=== PATIENT | female | born 1965 | race Caucasian/White ===

== ENCOUNTER 2019-05-30 09:11 | Outpatient (CLI) | payer BC, SELFPAY ==
--- NOTE | ~2019-05-30 | MM_ITS ---
EXAMINATION: MM screening [facility] BI w khari HISTORY: Screening mammogram TECHNIQUE: Craniocaudal and mediolateral oblique 3-D tomosynthesis images were obtained and synthetic 2-D images were generated. CAD analysis was submitted and interpreted. COMPARISON: 05/05/2018, 03/04/2017, 02/20/2016 BREAST PARENCHYMAL COMPOSITION: There are scattered areas of fibroglandular density. FINDINGS: There is no evidence of suspicious mass, calcification, or architectural distortion to sugg est malignancy in either breast. There has been no suspicious interval change. IMPRESSION: 1. No mammographic evidence of malignancy. 2. Recommend routine screening mammography in one year. BI-RADS Category 1: Negative Reviewed, dictated and finalized at location A. IFIED RESPIRATORY THERAPIST
== END 2019-05-30 09:12 | disposition home or self-care (01) ==
PROVIDERS: PCP Family Medicine; Visit Provider Nurse Practitioner
DX: Z12.31 Encounter for screening mammogram for malignant neoplasm of breast (principal)
CPT/HCPCS: 77063; 77067

== ENCOUNTER 2020-06-06 14:04 | Outpatient (CLI) | payer BC, SELFPAY ==
--- NOTE | ~2020-06-06 | MM_ITS ---
EXAMINATION: MM screening [facility] BI w khari HISTORY: Screening mammogram TECHNIQUE: Craniocaudal and mediolateral oblique 3-D tomosynthesis images were obtained and synthetic 2-D images were generated. CAD analysis was submitted and interpreted. COMPARISON: 05/30/2019, 05/05/2018, 03/04/2017 BREAST PARENCHYMAL COMPOSITION: There are scattered areas of fibroglandular density. FINDINGS: There is no evidence of suspicious mass, calcification, or architectural distortion to sugg est malignancy in either breast. There has been no suspicious interval change. IMPRESSION: 1. No mammographic evidence of malignancy. 2. Recommend routine screening mammography in one year. BI-RADS Category 1: Negative Reviewed, dictated and finalized at location A. THESIOLOGISTS' ASSISTANT
== END 2020-06-06 14:05 | disposition home or self-care (01) ==
LOC: ANHIMG 14:06
PROVIDERS: PCP Family Medicine; Visit Provider Nurse Practitioner
DX: Z12.31 Encounter for screening mammogram for malignant neoplasm of breast (principal)
CPT/HCPCS: 77063; 77067

== ENCOUNTER 2020-08-01 14:15 | Outpatient (CLI) | payer BC, SELFPAY ==
--- NOTE | ~2020-08-01 | DEXA_ITS ---
Bone Density Report Name: Shanika Hearn Age: 55 Sex: Female Ethnicity: White Date of : 1965 Indication: postmenopausal; height loss; Referring Provider: José Miguel, Malissa Study: Bone densitometry was performed. Exam Date: August 01, 2020 Accession number: [id number] Bone Density: Region BMD T-score Z-score Classification AP Spine (L1, L2, L3) 1.204 1.7 2.7 Normal Femoral Neck (Left) 0.951 0.9 2.0 Normal Total Hip (Left) 1.176 1.9 2.6 Normal Total Hip Bilateral Avg 1.117 1.4 2.1 Normal Femoral Neck (Right) 0.942 0.8 1.9 Normal Total Hip (Right) 1.056 0.9 1.6 Normal World Health Organization criteria for BMD impression classify patients as: Normal (T-score at or above -1.0), Osteopenia (T-score between -1.0 and -2.5), or Osteoporosis (T-score at or below -2.5). 10-year Fracture Risk: FRAX not reported because: All T-scores for Spine Total, Hip Total, Femoral Neck at or above -1.0 Clinical Information Provided by Patient: Has used the following medications: Vitamin D Patient maximum height was 65.0 Menopause Age: 53 No regular weight bearing exercise Does not regularly consume dairy products Drinks caffeinated beverages Onset of menses at age 10 Number of children 2 Impression: The patient has normal bone mass. Discussion: BONE DENSITY IS ABOVE THE MINIMUM DESIRABLE LEVEL AT ALL SKELETAL SITES TESTED. This patient?s bone mineral density is above the minimum desirable level (T-score -1.0 or better) at all sites measured. The patient should follow a healthful lifestyle (good nutrition with adequate calcium and vitamin D, and appropriate weight-bearing exercise). Follow-Up: Consider repeating this study in 5 years or sooner if there is some new clinical indication. Reported by: [facility] on 08/01/2020 3:11:00 PM. Reviewed, dictated and finalized at location [facility]
== END 2020-08-01 14:16 | disposition home or self-care (01) ==
PROVIDERS: PCP Family Medicine; Visit Provider Nurse Practitioner
DX: Z13.820 Encounter for screening for osteoporosis (principal)
CPT/HCPCS: 77080

== ENCOUNTER 2021-09-16 09:08 | Outpatient (CLI) | payer BC, SELFPAY ==
--- NOTE | ~2021-09-16 | MM_ITS ---
EXAMINATION: MM screening [facility] BI w khari HISTORY: Screening mammogram TECHNIQUE: Craniocaudal and mediolateral oblique 3-D tomosynthesis images were obtained and synthetic 2-D images were generated. CAD analysis was submitted and interpreted. COMPARISON: 06/06/2020, 05/30/2019, 05/05/2018 BREAST PARENCHYMAL COMPOSITION: There are scattered areas of fibroglandular density. FINDINGS: There is no suspicious mass, calcification, or architectural distortion to suggest malignan cy in either breast. There has been no suspicious interval change. IMPRESSION: 1. No mammographic evidence of malignancy. 2. Recommend routine screening mammography in one year. BI-RADS Category 1: Negative Reviewed, dictated and finalized at location A.
== END 2021-09-16 09:09 | disposition home or self-care (01) ==
LOC: ANHIMG 09:10
PROVIDERS: PCP Family Medicine; Visit Provider Nurse Practitioner
DX: Z12.31 Encounter for screening mammogram for malignant neoplasm of breast (principal)
CPT/HCPCS: 77063; 77067

== ENCOUNTER 2021-09-26 09:30 | Outpatient (CLI) | payer BC, SELFPAY ==
--- NOTE | ~2021-09-26 | US_ITS ---
EXAMINATION: US pelvic complete w TV DATE: 09/26/2021 10:39 INDICATION: Postmenopausal bleeding Comparison:No prior studies for comparison. TECHNIQUE: Multiple transabdominal and endovaginal sonographic images of the pelvis performed. FINDINGS: The uterus measures 6.7 x 3.8 x 4 cm. The endometrial complex measures 6 mm. The endometriu m measures poorly defined and heterogeneous. The right ovary measures 2 x 1.4 x 1.6 cm and the left ovary is not visualized. There is no free fluid in the pelvis. There are no abnormal masses seen on either side. IMPRESSION: 1. Thickened endomtrial complex. The differential diagnosis includes endometrial hyperplasia, polyp a nd carcinoma. Biopsy is recommended. Reviewed, dictated and finalized at location A. IMPRESSION: 1. Thickened endomtrial complex. The differential diagnosis includes endometria l hyperplasia, polyp and carcinoma. Biopsy is recommended.
== END 2021-09-26 09:31 | disposition home or self-care (01) ==
PROVIDERS: PCP Family Medicine; Visit Provider Nurse Practitioner
DX: N95.0 Postmenopausal bleeding (principal); R93.89 Abnormal findings on diagnostic imaging of other specified body structures
CPT/HCPCS: 76830; 76856

== ENCOUNTER 2022-12-18 14:26 | Outpatient (CLI) | payer BC, SELFPAY ==
--- NOTE | ~2022-12-18 | MM_ITS ---
EXAMINATION: MM screening [facility] BI w khari HISTORY: Screening mammogram TECHNIQUE: Craniocaudal and mediolateral oblique 3-D tomosynthesis images were obtained and synthetic 2-D images were generated. CAD analysis was submitted and interpreted. COMPARISON: 09/16/2021, 06/02/2020, 05/30/2019 bilateral screening mammogram examinations BREAST PARENCHYMAL COMPOSITION: There are scattered areas of fibroglandular density. FINDINGS: Biopsy marker on the right; history of prior benign right breast biopsy. There is no eviden ce of suspicious mass, calcification, or architectural distortion to suggest malignancy in either vito ast. There has been no suspicious interval change. IMPRESSION: 1. No mammographic evidence of malignancy. 2. Recommend routine screening mammography in one year. BI-RADS Category 1: Negative Reviewed, dictated and finalized at location A.
== END 2022-12-18 14:27 | disposition home or self-care (01) ==
PROVIDERS: Visit Provider Obstetrics & Gynecology
DX: Z12.31 Encounter for screening mammogram for malignant neoplasm of breast (principal)
CPT/HCPCS: 77063; 77067

== ENCOUNTER 2023-12-31 14:33 | Outpatient (CLI) | payer OTHER, SELFPAY ==
--- NOTE | ~2023-12-31 | MM_ITS ---
EXAMINATION: MM screening [facility] BI w khari HISTORY: Screening mammogram TECHNIQUE: Craniocaudal and mediolateral oblique 3-D tomosynthesis images were obtained and synthetic 2-D images were generated. CAD analysis was submitted and interpreted. COMPARISON: 12/18/2022, 09/16/2021, 06/06/2020, 05/30/2019 BREAST PARENCHYMAL COMPOSITION:Not Dense. There are scattered areas of fibroglandular density. FINDINGS: No suspicious mass, calcification, or architectural distortion are identified in either vito ast to suggest malignancy. There has been no suspicious interval change. IMPRESSION: No mammographic evidence of malignancy. Recommend routine screening mammography in one year. BI-RADS Category 1: Negative Reviewed, dictated and finalized at location .
== END 2023-12-31 14:34 | disposition home or self-care (01) ==
PROVIDERS: PCP Physician Assistant; Visit Provider Obstetrics & Gynecology
DX: Z12.31 Encounter for screening mammogram for malignant neoplasm of breast (principal)
CPT/HCPCS: 77063; 77067

== ENCOUNTER 2024-03-14 12:20 | Emergency (ER) | payer OTHER, SELFPAY ==
[2024-03-14 12:24] VITALS: BP 126/64; PULSE 79; RESP 18; TEMP 36.4; O2SAT 100
--- NOTE | 2024-03-14 14:23 | PC.NURSE ---
pt's PCP sent OP xray order for pt, so pt left prior to being seen.
== END 2024-03-14 16:22 | disposition left against medical advice (07) ==
PROVIDERS: PCP Physician Assistant
DX: M25.562 Pain in left knee (principal)
CPT/HCPCS: 99199

== ENCOUNTER 2024-03-14 14:30 | Outpatient (CLI) | payer OTHER, SELFPAY ==
--- NOTE | ~2024-03-14 | XR_ITS ---
Left Knee Technique: AP, lateral, and sunrise views were obtained. Clinical History: Pain Findings: No fracture or dislocation is seen. Osseous alignment is anatomic. There is mild degenerati ve spurring of the lateral compartment, intercondylar notch, and patella. Soft tissues are unremarkab le. No joint effusion is seen. Impression: Mild degenerative change, as above. Reviewed, dictated and finalized at location M. ER TREATMENT PLANT OPERATOR Impression: Mild degenerative change, as above.
== END 2024-03-14 14:31 | disposition home or self-care (01) ==
PROVIDERS: PCP Physician Assistant; Visit Provider Physician Assistant
DX: M17.12 Unilateral primary osteoarthritis, left knee (principal)
CPT/HCPCS: 73562

== ENCOUNTER 2025-01-09 14:08 | Outpatient (CLI) | payer OTHER, SELFPAY ==
--- NOTE | ~2025-01-09 | MM_ITS ---
EXAMINATION: MM screening [facility] BI w khari HISTORY: Screening TECHNIQUE: Craniocaudal and mediolateral oblique 3-D tomosynthesis images were obtained and synthetic 2-D images were generated. CAD analysis was submitted and interpreted. COMPARISON: Comparison to multiple prior studies sequentially, with oldest reviewed study dated 05/05/2018. BREAST PARENCHYMAL COMPOSITION: Not dense: There are scattered areas of fibroglandular density. FINDINGS: There is no evidence of suspicious mass, calcification, or architectural distortion to suggest malignancy in either breast. There has been no suspicious interval change. IMPRESSION: 1. No mammographic evidence of malignancy. 2. Recommend routine screening mammography in one year. BI-RADS Category 1: Negative Reviewed, dictated and finalized at location B.
--- OUTSIDE RECORDS SUMMARY | 2025-01-09 14:44 | XMS_ITS | Data Portability ---
Author Organization [place] [facility] [place] [facility], Main Office Address [address] [place] [address] Assessment Encounter Date Assessment Date Assessment LastModified by Organization Details LastModified Time 12/17/2022 12/17/2022 [facility]- 2016- Fedder- repeat 2026 Mammogram- per MANAGER ADOBE, done 09/2021- scheduled for December E- MANAGER ADOBE- Amalia Shmuel Call office if worse, ER if life threatening illness RTC 1 month She voices understanding of plan and agrees [email or web address] Not available 12/17/2022 16:32:09 01/21/2023 01/21/2023 [facility] 2017- Fedder- repeat 2026 Mammogram- per MANAGER ADOBE, done 09/2021- scheduled for December E- MANAGER ADOBE- Amalia Huiyeison Call office if worse, ER if life threatening illness RTC 1 month She voices understanding of plan and agrees [email or web address] Not available 01/21/2023 15:42:52 02/25/2023 02/25/2023 [facility]- 2017- Fedder- repeat 2026 Mammogram- per MANAGER ADOBE WWE- MANAGER ADOBE- Amalia Huiyeison Call office if worse, ER if life threatening illness RTC 1 month She voices understanding of plan and agrees [email or web address] Not available 02/25/2023 17:33:06 03/25/2023 03/25/2023 [facility]- 2017- Fedder- repeat 2026 Mammogram- per MANAGER ADOBE WWE- MANAGER ADOBE- Amalia Huiyeison Call office if worse, ER if life threatening illness RTC 1 month She voices understanding of plan and agrees [email or web address] Not available 03/25/2023 15:00:55 04/29/2023 04/29/2023 [facility] [place]- 2017- Fedder- repeat 10 years- 2026 Mammogram- per MANAGER ADOBE WWE- MANAGER ADOBE- Amalia Mi Call office if worse, ER if life threatening illness She plans transfer to PCP in [facility] She voices understanding of plan and agrees [email or web address] Not available 04/29/2023 15:59:45 Plan of Treatment Reminders Order Date Submit Date Provider Last Modified By Organization Details Last Modified Time Details Appointments None recorded. Lab None recorded. Referral None recorded. Procedures None recorded. Surgeries None recorded. Imaging None recorded. Medication Orders losartan 50 mg-hydrochl orothiazide 12.5 mg tablet 2023 024 [facility] [address] [place], [address], 4 15:56:22 phentermine 37.5 mg tablet 2023 024 [facility] [address] [place], [address], 4 15:56:21 topiramate 25 mg tablet 2023 024 [facility] [address] [place], [address], 4 15:56:20 phentermine 37.5 mg tablet 2022 023 [facility] [address] [place], [address], 3 15:16:32 phentermine 37.5 mg tablet 2022 023 [facility] [address] [place], [address], 3 16:16:37 phentermine 37.5 mg tablet 2022 023 [facility] [address] [place], [address], 3 15:51:23 phentermine 37.5 mg tablet 2022 023 [facility] [address] [place], [address], 3 15:55:58 Patient TargetsNo targets recorded. Patient InstructionsNo instructions recorded. Reason for Referral None Reported. Problems Name Problem SNOMED Code Status Onset Date Resolution Date Notes Provider Name and Address Organization Details Recorded Time Impacted cerumen in right ear 3997384793464 103 Active 2021 Not Available [facility] 3 00:58:25 Constipati on 51025782 Active 2022 Not Available [facility] 3 00:58:25 Essential hypertensi on 33940787 Active 2022 RAMOS Rhoades-C [address], [place], [address] , [employer] 3 19:55:12 Eruption 750376452 Active 2022 RAMOS Rhoades-C [address], [place], [address] , [employer] 3 19:55:16 Obesity 616311966 Active 2022 RAMOS Rhoades-C [address], [place], [address] , [facility] 3 19:55:20 Hyperlipid emia 99184858 Active 2022 RAMOS Rhoades-C [address], [place], [address] , [facility] 3 19:55:26 Prediabete s 003175567 Active 2022 RAMOS Rhoades-C [address], [place], [address] , [employer] 3 19:55:30 Vitamin D deficiency 40698383 Active 2022 RAMOS Rhoades-Bassem [address] [facility], [facility] [address], [place], [address] , [facility] 3 10:39:21 Acute urinary tract infection 445729504 Active 2022 CYRUS Garcia, [facility] 3 17:23:55 Hypokalemi a 70919807 Active 2022 CYRUS Garcia, [facility] 3 17:25:12 Problem Notes None recorded. Medical Equipment None Reported. Allergies No known drug allergies Medications Name Sig Start Date Stop Date Status Note LastModified by Organization Details LastModified Time Colace 100 mg capsule Take 1 capsule every day by oral route as needed. 10/01 completed Not Available Not Available Not Available topiramate 25 mg tablet active Not Available Not Available Not Available phentermine 37.5 mg tablet TAKE 1 TABLET BY MOUTH ONCE DAILY IN THE MORNING active Not Available Not Available No t Available estradiol-n orethindron e acet 1 mg-0.5 mg tablet TAKE 1 TABLET BY MOUTH ONCE DAILY 12/17 completed Not Available Not Available Not Available mupirocin 2 % topical ointment APPLY TO WOUNDS TWICE DAILY UNTIL HEALED. 10/02 completed Not Available Not Available Not Available alprazolam 2 mg tablet 03/05 completed Not Available Not Available Not Available oxycodone-a cetaminophe n 7.5 mg-325 mg tablet 03/05 completed Not Available Not Available Not Available losartan 50 mg-hydrochl orothiazide 12.5 mg tablet active Not Available Not Available Not Available fluocinonid e 0.05 % topical cream APPLY TO AFFECTED AREA ON LEGS 4 TIMES DAILY 10/02 completed Not Available Not Available Not Available doxycycline hyclate 100 mg tablet TAKE 1 TABLET BY MOUTH ONCE DAILY 10/02 completed Not Available Not Available Not Available nitrofurant oin monohydrate /macrocryst als 100 mg capsule TAKE 1 CAPSULE BY MOUTH EVERY 12 HOURS FOR 5 DAYS 10/01 completed Not Available Not Available Not Available Calcium 600 active Not Available Not A vailable Not Available Mounjaro 7.5 mg/0.5 mL subcutaneou s pen injector INJECT 7.5MG SUBCUTANE OUSLY ONCE WEEKLY 06/25 completed Not Available Not Available Not Available Mounjaro 5 mg/0.5 mL subcutaneou s pen injector Inject 5 mg every week by subcutane ous route. 03/05 completed Not Available Not Available Not Available Mounjaro 10 mg/0.5 mL subcutaneou s pen injector Inject by subcutane ous route for 28 days. 12/17 completed Not Available Not Available Not Available Mounjaro 12.5 mg/0.5 mL subcutaneou s pen injector Inject 12.5 mg every week by subcutane ous route. 10/01 completed Not Available Not Available Not Available Vitals Date Recorded Body height Body mass index (BMI) Body weight Body temperature Heart rate Oxygen saturation Oxygen saturation in Arterial blood by Pulse oximetry Systolic And Diastolic Provider Name and Address Organization Details Last Updated DateTime 4 162.56 cm 29 kg/m2 68824.1 1 g 97.8 [degF] 74 /min 99 % 99 % 118/76 mm[Hg] Kitty Jolley [facility] [employer] 4 15:39:48 Date Recorded Body height Body mass index (BMI) Body weight Body temperature Heart rate Oxygen saturation Oxygen saturation in Arterial blood by Pulse oximetry Systolic And Diastolic Provider Name and Address Organization Details Last Updated DateTime 3 162.56 cm 30 kg/m2 47253.6 6 g 97.6 [degF] 102 /min 98 % 98 % 122/70 mm[Hg] Kitty Jolley [facility] [employer] 3 15:44:28 Date Recorded Body height Body mass index (BMI) Body weight Body temperature Heart rate Oxygen saturation Oxygen saturation in Arterial blood by Pulse oximetry Systolic And Diastolic Provider Name and Address Organization Details Last Updated DateTime 3 162.56 cm 29.4 kg/m2 85400.3 g 97.7 [degF] 86 /min 97 % 97 % 126/72 mm[Hg] Kitty Jolley [facility] [employer] 3 15:41:41 Date Recorded Body height Body mass index (BMI) Body weight Body temperature Heart rate Oxygen saturation Oxygen saturation in Arterial blood by Pulse oximetry Systolic And Diastolic Provider Name and Address Organization Details Last Updated DateTime 3 162.56 cm 29.2 kg/m2 13243.7 g 97.7 [degF] 82 /min 98 % 98 % 128/76 mm[Hg] Kitty Jolley MA [facility] 3 15:42:55 Date Recorded Body height Body mass index (BMI) Body weight Body temperature Heart rate Oxygen saturation Oxygen saturation in Arterial blood by Pulse oximetry Systolic And Diastolic Provider Name and Address Organization Details Last Updated DateTime 3 162.56 cm 28.5 kg/m2 53280.3 3 g 97.7 [degF] 88 /min 98 % 98 % 128/74 mm[Hg] Kitty Jolley C[facility] [employer] [facility] 3 14:57:38 Social History Question Answer Notes LastModified by Imaggaizat ion Details LastModified Time Tobacco Smoking Status Never Smoker Not Available [facility] 06/12/2022 00:56:52 What Is Your Level Of Caffeine Consumption? Moderate [id number] Information not available 06/12/2022 In The 14 Days Before Symptom Onset, Have You Had Close Contact With A Laboratory-confir med COVID-19 While That Case Was Ill? No [id number] Information not available 06/12/2022 In The 14 Days Before Symptom Onset, Have You Had Close Contact With A Person Who Is Under Investigation For COVID-19 While That Person Was Ill? No [id number].36221 [id number] Information not available 06/12/2022 What Type Of Diet Are You Following? REGULAR [id number].74992 13846 Information not available 06/12/2022 What Is The Highest Grade Or Level Of School You Have Completed Or The Highest Degree You Have Received? [id number] MIGRATION.12395 73943 Information not available 06/12/2022 Have There Been Any Changes To Your Family Or Social Situation? No MIGRATION.41620 [id number] Information not available 06/12/2022 What Is The Fluoride Status Of Your Home? Unknown MIGRATION.95226 [id number] Information not available 06/12/2022 Are There Any Guns Present In Your Home? Yes MIGRATION.21349 [id number] Information not available 06/12/2022 Do You Use Insect Repellent Routinely? No MIGRATION.95387 15678 Information not available 06/12/2022 Where Do You Live? [place] MIGRATION.64073 60653 Information not available 06/12/2022 What Was The Date Of Your Most Recent Tobacco Screening? 04/29/2023 [email or web address] Information not available 04/29/2023 Do You Have Any Pets? No MIGRATION.52475 91694 Information not available 06/12/2022 What Is Your Relationship Status? MIGRATION.49788 35410 Information not available 06/12/2022 Do You Use Your Seat Belt Or Car Seat Routinely? Yes MIGRATION.30470 03999 Information not available 06/12/2022 Do You Have Smoke And Carbon Monoxide Detectors In Your Home? Yes MIGRATION.50874 72804 Information not available 06/12/2022 Are You Passively Exposed To Smoke? No MIGRATION.75387 78766 Information not available 06/12/2022 Are There Any Smokers In Your House? No MIGRATION.51594 55459 Information not available 06/12/2022 Do You Use Sunscreen Routinely? No MIGRATION.08518 20747 Information not available 06/12/2022 Have You Recently Traveled Abroad? No MIGRATION.16971 29663 Information not available 06/12/2022 Do You Have Any Dietary Restrictions? No MIGRATION.71433 65286 Information not available 06/12/2022 Sex: Unknown Functional Status Question Answer Note LastModified by Organizat ion Details LastModified Time Do you use any illicit or recreational drugs? No MIGRATION.453148 6615 Information not available 06/12/2022 Do you or have you ever used any other forms of tobacco or nicotine? No MIGRATION.792066 9767 Information not available 06/12/2022 What is your level of alcohol consumption? 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 None MIGRATION.601341 2984 Information not available 06/12/2022 Mental Status Question Answer Note LastModified by Organizat ion Details LastModified Time Do you feel stressed (tense, restless, nervous, or anxious, or unable to sleep at night)? [id number] [id number] Information not available 06/12/2022 Family History Relationship Description Onset Age of this Age Resolved Age Notes LastModified by Organization Details LastModified Time Mother Heart disease [id number] Not available 06/12/2022 00:57:22 Medical History Condition Response HYPERTENSION Y Gynecological HistoryNo gynecological history recorded. Obstetrics History GPAL:G 0 P 0 0 0 0 Past Encounters Encounter ID Performer Location Encounter Start Date Encounter Closed Date Diagnosis/Indication Diagnosis SNOMED-CT Code Diagnosis ICD10 Code Diagnosis IMO Codes Diagnosis Note [id number] Kimberley arenas MD [facility] Internal Med Luna cowan [address] [place] [address] [place] [address] 10/02/2021 00:00:00 10/02/2021 12:42:42 [id number] ИВАН Rhoades [facility] Internal Med Luna cowan [address] [place] [address] [place] [address] 10/30/2021 00:00:00 10/30/2021 17:51:21 [id number] Kimberley arenas MD [facility] Internal Med Luna cowan [facility] [place] [address] 12/04/2021 00:00:00 12/04/2021 16:13:08 [id number] Kimberley arenas MD [facility] Internal Med [place] [address] [place] [address] [place] [address] 03/05/2022 00:00:00 03/05/2022 11:36:29 [id number] Kimberley arenas MD [facility] Internal Med Luna adamaris [address] [place] [address] [place] [address] 06/25/2022 10:02:28 06/25/2022 10:40:51 Essential hypertension 41217910 I10 on losartan/H CTZ Eruption 190027590 R21 has seen derm in the past and was on fluocinoni dedeclines new referral todayrecom mend avoiding the tanning bed as it increases risk for skin cancer Obesity 382075838 E66.9 continue diet/exerc ise efforts Hyperlipidemia 66501591 E78.5 mild, continue to work on diet/exerc ise Prediabetes 005518776 R7 3.03 On Mounjaro, she is aware this is off label for prediabete s pt is aware of side effects, risks, benefitspt denies any personal or family history of MEN II or MTC, denies and personal history of pancreatit ispt knows to call the office if any severe n/v or abdominal pain Wants to lose weight 170 172016 Z71.3 on topamax, doesn't want to try phentermin e again, she tells me the last time she used it, it didn't work as well for her Screening for malignant neoplasm of colon 282666083 Z12.11 recommend she get cscope as the report from 2017 says she is due- she wants to wait and check on the letter she has at home, she will call us back with that says as she thinks she was told 10 years Vitamin D deficiency 347 25634 E55.9 on OTC supplement Health edu cation given 804377671 Z71.9 recommend she stick with 1 single womens multivitam in and then her vit d supplement dailyaim to get micronutri ents from food- aim to get fresh veg/fruit at every meal/snack [id number] Kimberley arenas MD [facility] [address] [facility] [place] [address] 10/01/2022 10:06:59 10/01/2022 10:46:30 Essential hypertension 49178507 I10 on losartan/H CTZ Eruption 815342661 R21 has seen derm in the past and was on fluocinoni dedeclines new referral todayrecom mend avoiding the tanning bed as it increases risk for skin cancer Obesity 960274696 E66.9 recommend healthy, well balanced mealsfocus on lean meats, fresh vegetables , fresh fruits, whole grainsredu ce fast/proce ssed foods or eating out to no more than 1-2 times per weekaim to get 30 min of exercise most days of the week- walking is a great choicealso recommend resistance training 2-3 times per week we had a long discussion about nutrition, how to figure out TDEE, and how to work to be in a mild deficit without crash dietingrec ommend TDEEcalcul ator.net to figure out TDEE, aim to get 200-300 cals below TDEE for sustainabl e weight losswe discussed the importance of protein, we discussed macros and how to count themthe importance of daily fitness was discussed, including the importance of resistance trainingon line nutrition resources shared with patient Hyperlipidemia 20525099 E78.5 mild, continue to work on diet/exerc ise Prediabetes 731356552 R7 3.03 On Mounjaro, she is aware this is off label for prediabete s pt is aware of side effects, risks, benefitspt denies any personal or family history of MEN II or MTC, denies and personal history of pancreatit ispt knows to call the office if any severe n/v or abdominal pain Wants to lose weight 170 826575 Z71.3 on topamax, doesn't want to try phentermin e again, she tells me the last time she used it, it didn't work as well for her Vitamin D deficiency 347 76371 E55.9 on OTC supplement Health edu cation given 773303728 Z71.9 recommend she stick with 1 single womens multivitam in and then her vit d supplement dailyaim to get micronutri ents from food- aim to get fresh veg/fruit at every meal/snack [id number] Kimberley arenas MD [facility] [address] [facility] [place] [address] 12/17/2022 15:37:01 12/17/2022 15:58:50 Essential hypertension 68079450 I10 on losartan/H CTZ Eruption 358142655 R21 has seen derm in the past and was on fluocinoni dedeclines new referral todayrecom mend avoiding the tanning bed as it increases risk for skin cancer Obesity 001293822 E66.9 recommend healthy, well balanced mealsfocus on lean meats, fresh vegetables , fresh fruits, whole grainsredu ce fast/proce ssed foods or eating out to no more than 1-2 times per weekaim to get 30 min of exercise most days of the week- walking is a great choicealso recommend resistance training 2-3 times per week we had a long discussion about nutrition, how to figure out TDEE, and how to work to be in a mild deficit without crash dietingrec ommend TDEEcalcul ator.net to figure out TDEE, aim to get 200-300 cals below TDEE for sustainabl e weight losswe discussed the importance of protein, we discussed macros and how to count themthe importance of daily fitness was discussed, including the importance of resistance trainingon line nutrition resources shared with patient Hyperlipidemia 04841708 E78.5 mild, continue to work on diet/exerc ise Prediabetes 493762840 R7 3.03 insurance would no longer cover Susan Working on diet and exercise Wants to lose weight 170 725999 Z71.3 on topamax, add phentermin e per her request- she is aware of side effects, risks, benefits Vitamin D deficiency 347 26465 E55.9 on OTC supplement Health edu cation given 655368132 Z71.9 recommend she stick with 1 single womens multivitam in and then her vit d supplement dailyaim to get micronutri ents from food- aim to get fresh veg/fruit at every meal/snack [id number] Kimberley arenas MD [facility] [address] [facility] [place] [address] 01/21/2023 15:35:30 01/21/2023 15:52:08 Essential hypertension 08864927 I10 on losartan/H CTZ Eruption 768545677 R21 has seen derm in the past and was on fluocinoni dedeclines new referral todayrecom mend avoiding the tanning bed as it increases risk for skin cancer Obesity 104443355 E66.9 previously discussed: recommend healthy, well balanced mealsfocus on lean meats, fresh vegetables , fresh fruits, whole grainsredu ce fast/proce ssed foods or eating out to no more than 1-2 times per weekaim to get 30 min of exercise most days of the week- walking is a great choicealso recommend resistance training 2-3 times per week we had a long discussion about nutrition, how to figure out TDEE, and how to work to be in a mild deficit without crash dietingrec ommend TDEEcalcul ator.net to figure out TDEE, aim to get 200-300 cals below TDEE for sustainabl e weight losswe discussed the importance of protein, we discussed macros and how to count themthe importance of daily fitness was discussed, including the importance of resistance trainingon line nutrition resources shared with patient Hyperlipidemia 22071780 E78.5 mild, continue to work on diet/exerc ise Prediabetes 143672734 R7 3.03 insurance would no longer cover Susan Working on diet and exercise Wants to lose weight 170 142116 Z71.3 on topamax, on phentermin e per her request- she is aware of side effects, risks, benefits Vitamin D deficiency 347 49549 E55.9 on OTC supplement [id number] Kimberley arenas MD [facility] [place] [address] [address] [place] [address] [facility] [place] [address] 02/25/2023 15:36:38 02/25/2023 16:18:57 Essential hypertension 41390804 I10 on losartan/H CTZ Eruption 231397632 R21 has seen derm in the past and was on fluocinoni dedeclines new referral todayrecom mend avoiding the tanning bed as it increases risk for skin cancer Obesity 536372927 E66.9 previously discussed: recommend healthy, well balanced mealsfocus on lean meats, fresh vegetables , fresh fruits, whole grainsredu ce fast/proce ssed foods or eating out to no more than 1-2 times per weekaim to get 30 min of exercise most days of the week- walking is a great choicealso recommend resistance training 2-3 times per week we had a long discussion about nutrition, how to figure out TDEE, and how to work to be in a mild deficit without crash dietingrec ommend TDEEcalcul ator.net to figure out TDEE, aim to get 200-300 cals below TDEE for sustainabl e weight losswe discussed the importance of protein, we discussed macros and how to count themthe importance of daily fitness was discussed, including the importance of resistance trainingon line nutrition resources shared with patient Hyperlipidemia 99607117 E78.5 mild, continue to work on diet/exerc ise Prediabetes 795340815 R7 3.03 insurance would no longer cover Susan Working on diet and exercise Wants to lose weight 170 199727 Z71.3 on topamax, on phentermin e per her request- she is aware of side effects, risks, benefits Vitamin D deficiency 347 65377 E55.9 on OTC supplement [id number] Kimberley arenas MD [facility] Internal Med [address] [facility] [place] [address] 03/25/2023 14:49:33 03/25/2023 15:18:48 Essential hypertension 11306620 I10 on losartan/H CTZ Eruption 864477994 R21 has seen derm in the past and was on fluocinoni dedeclines new referral todayrecom mend avoiding the tanning bed as it increases risk for skin cancer Obesity 584030187 E66.9 previously discussed: recommend healthy, well balanced mealsfocus on lean meats, fresh vegetables , fresh fruits, whole grainsredu ce fast/proce ssed foods or eating out to no more than 1-2 times per weekaim to get 30 min of exercise most days of the week- walking is a great choicealso recommend resistance training 2-3 times per week we had a long discussion about nutrition, how to figure out TDEE, and how to work to be in a mild deficit without crash dietingrec ommend TDEEcalcul ator.net to figure out TDEE, aim to get 200-300 cals below TDEE for sustainabl e weight losswe discussed the importance of protein, we discussed macros and how to count themthe importance of daily fitness was discussed, including the importance of resistance trainingon line nutrition resources shared with patient Hyperlipidemia 24921004 E78.5 mild, continue to work on diet/exerc ise Prediabetes 993981757 R7 3.03 insurance would no longer cover Susan Working on diet and exercise Wants to lose weight 170 135716 Z71.3 on topamax, on phentermin e per her request- she is aware of side effects, risks, benefits Vitamin D deficiency 347 92541 E55.9 on OTC supplement [id number] Kimberley arenas MD [facility] [address] [facility] [place] [address] 04/29/2023 15:28:24 04/29/2023 16:15:11 Essential hypertension 54288410 I10 on losartan/H CTZ Eruption [id number] has seen derm in the past and was on fluocinoni dedeclines new referral todayrecom mend avoiding the tanning bed as it increases risk for skin cancer Obesity [id number] E66.9 previously discussed: recommend healthy, well balanced mealsfocus on lean meats, fresh vegetables , fresh fruits, whole grainsredu ce fast/proce ssed foods or eating out to no more than 1-2 times per weekaim to get 30 min of exercise most days of the week- walking is a great choicealso recommend resistance training 2-3 times per week we had a long discussion about nutrition, how to figure out TDEE, and how to work to be in a mild deficit without crash dietingrec ommend TDEEcalcul ator.net to figure out TDEE, aim to get 200-300 cals below TDEE for sustainabl e weight losswe discussed the importance of protein, we discussed macros and how to count themthe importance of daily fitness was discussed, including the importance of resistance trainingon line nutrition resources shared with patient Hyperlipidemia [id number] E78.5 mild, continue to work on diet/exerc ise Prediabetes [id number] R7 3.03 insurance would no longer cover Sally rocheing on diet and exercise Wants to lose weight [phone] [id number] Z71.3 on topamax, continue phentermin e per her request for one more month- she is aware of side effects, risks, benefits Vitamin D deficiency [phone] E55.9 on OTC supplement Health Concerns Section Related Observation LastModified by Organization Detai ls LastModified Time None Recorded Concern Status LastModified by Organization Details LastModified Time None Recorded Advance Directives Directive None Recorded Payers Insurance Date Sequence Insurance Name Policy Number Policy Melendez Covered Member ID Melendez Member ID Guarantor Name 04/26/2023 1 [employer] [id number] Yanick Saleh [id number] Shanika Saleh Notes Date Note Type Note Provider Name and Address Organization Details Recorded Time 12/17/2022 text/html Shanika presents today for follow-up. She also wants to discuss starting phentermine. She was on the Mounjaro and she lost about 40 lb on it. Her insurance will no longer allow her to have it. She has been working on diet and exercise. Reports she has been having more cravings. She has been able to maintain her weight loss so far. She has been on phentermine in the past and would like to try it again. She tells me when she was on it before, she tolerated well without any side effects. She tells me she has not been getting as much protein in her diet lately. She also has not been doing any sort of exercise or weight training. Her blood pressures been well controlled on her current meds. ИВАН Rhoades [address], [place], [address], [employer] 12/17/2022 16:33:00 01/21/2023 text/html Shanika presents today for follow up. She took a break from the phentermine last week while she was on vacation in [place]. She did a great job managing her food. She had a few treats here and there but on the whole prioritized protein and when she had larger portion she cut those into thirds and save some for later. At home, she has also been prioritizing her protein. She is very active chasing after her grand kids. Blood pressures been well controlled. She has not had any side effects from the medication. ИВАН Rhoades [address], [place], [address], [employer] 01/21/2023 15:53:53 02/25/2023 text/html Shanika presents today for follow-up. She has lost another 2 lb on phentermine. She is tolerating this well and without issue. She is requesting to continue it. She has been working on making positive changes in her nutrition as well as getting in her fitness most days. She is very active with her grandchildren. ИВАН Rhoades [address], [place], [address], [employer] 02/25/2023 17:33:20 03/25/2023 text/html Shanika presents today for follow-up. She continues to work hard on her healthy lifestyle. She reports that the phentermine is working well for her. She denies any side effects and would like to continue for another month. She reports overall she is feeling much better since her weight loss. She has lost about 50 lb since last summer. She reports she was able to make healthy choices throughout and was able to control her portions. She also was able to make Nick cookies with her grandkids but able to limit her portions with that as well. ИВАН Rhoades [address], [place], [address], [facility] [employer] [facility] [employer] 03/25/2023 15:19:21 04/29/2023 text/html Shanika presents today for follow-up. She is little frustrated as she has stalled in her weight loss. Previously, we had talked about getting an jesus to track her nutrition so she can be sure she is at a gentle calorie deficit as well as we had previously talked about getting some weight training in. She has not yet started that, but she plans to do both of those soon. Blood pressures been well controlled on her current dose of losartan hydrochlorothiazid e. ИВАН Rhoades [address], [place], [address], [employer] 04/29/2023 16:00:12 OBGyn Episode No OBEpisode recorded.
== END 2025-01-09 14:09 | disposition home or self-care (01) ==
LOC: ANHFOHIMG 14:08
PROVIDERS: PCP Physician Assistant; Visit Provider Obstetrics & Gynecology
DX: Z12.31 Encounter for screening mammogram for malignant neoplasm of breast (principal)
CPT/HCPCS: 77063; 77067